=== PATIENT | female | born 1965 | race Caucasian/White ===

== ENCOUNTER 2016-11-16 21:00 | Outpatient (CLI) | payer BC, MEDICAID ==
[~2016-11-16 21:00] MED LIST: BENZ-13 PO; BUSP15TA60 PO; CETI10TA17 PO; FLUO20CA42 PO; FLUT16SP22 NSEACH; GLUC1CAP37 PO; GUAI600T86 PO; HYDR12.56 PO
== END 2016-11-17 06:05 | disposition home or self-care (01) ==
LOC: SLEEP 21:00
PROVIDERS: ATTEND Pediatrics
DX: G47.10 Hypersomnia, unspecified (principal); R06.83 Snoring; G47.33 Obstructive sleep apnea (adult) (pediatric)
CPT/HCPCS: 95810

== ENCOUNTER 2017-01-08 09:00 | Outpatient (CLI) | payer BC, MEDICAID ==
[~2017-01-08] VITALS: Ht 167.6 cm; Wt 108.9 kg
[2017-01-08] MEDS ORDERED: BUSP7.5T5 PO (09:33)
[2017-01-08] MEDS ORDERED: FLUO40CA PO (09:33)
== END 2017-01-08 09:44 ==
LOC: PREOP 09:00
PROVIDERS: ATTEND Surgery
DX: Z01.818 Encounter for other preprocedural examination (principal); Z12.11 Encounter for screening for malignant neoplasm of colon

== ENCOUNTER 2017-01-13 07:56 | Day surgery (SDC) | payer BC, MEDICAID ==
[~2017-01-13] VITALS: Ht 167.6 cm; Wt 108.9 kg
[~2017-01-13 07:56] MED LIST changes: +BUSP7.5T5 PO; +FLUO40CA PO
[2017-01-13] MEDS ORDERED: LACTATED RINGERS 1,000 ML IV ONE (08:41)
[2017-01-13] MEDS ORDERED: LACTATED RINGERS 1,000 ML IV SCH (08:45)
[2017-01-13] MEDS ORDERED: BENZOCAINE 20% SPRAY (HURRICANE) 60 ML CAN MT PRN (09:00)
[2017-01-13 09:14] VITALS: BP 144/93
[2017-01-13] MEDS ORDERED: fentaNYL INJECTION 100 MCG/2 ML AMP IVP PRN ×2 (09:45)
[2017-01-13] MEDS ORDERED: MIDAZOLAM 2 MG/2 ML (VERSED) VIAL IVP PRN ×2 (09:45)
[2017-01-13] MEDS ORDERED: proPOfol 200 MG/20 ML (DIPRIVAN) VIAL IV ONE (10:53)
[2017-01-13] MEDS ORDERED: LIDOCAINE PF 2% 5 ML (XYLOCAINE) VIAL ONE (10:53)
--- NOTE | 2017-01-13 10:56 | Progress Note-Pre Operative ---
Pre-Operative Progress Note H&P Reviewed The H&P was reviewed, patient examined and no changes noted. Time Seen by Provider: 10:51 Date H&P Reviewed: Jan 13, 2017 Time H&P Reviewed: 10:54 Pre-Operative Diagnosis: Screening Colonoscopy ALECIA KELLY DO Jan 13, 2017 10:56
[2017-01-13 11:35] VITALS: BP 148/78
--- NOTE | 2017-01-13 11:53 | Progress Note-Post Operative ---
Post-Operative Progess Note Surgeon (s)/Power Driven Brush Maker (s) Surgeon ALECIA KELLY DO Power Driven Brush Maker: none Pre-Operative Diagnosis Screening Colonoscopy Post-Operative Diagnosis Polyps Diverticula Int Hemorrhoids Procedure & Operative Findings Date of Procedure 01/13/17 Procedure Performed/Findings Colon with hot bx Anesthesia Type IV sedation by CUSTOMER ACCOUNTS ADVISOR Estimated Blood Loss Estimated blood loss (mL): scant Specimens/Packing Specimens Removed Desc colon polyp Asc colon polyp Transverse colon polyp ALECIA KELLY DO Jan 13, 2017 11:53
--- NOTE | 2017-01-13 11:55 | Endoscopy Discharge Instruct ---
Endo Procedure/Findings Findings 1.: Polyp 2.: Diverticulosis 3.: Internal Hemorrhoids Discharge Instructions - Activity: You might feel a little sleepy until tomorrow. This is due to the medicine you received to relax you. Until tomorrow, you should: NOT drive a car, operate machinery or power tools. NOT drink any alcoholic beverages. NOT make any important decisions or sign importortant papers. Do not return to work until tomorrow, unless otherwise instructed. Resume previous activities tomorrow. Diet: Start by taking liquids. If you tolerate liquids, advance to solid food. Make appointment for one week. Notify Physician - If you experience excessive bleeding, unusual abdominal pain, fever, or chest pain, contact your doctor immediately. [phone] Follow-Up: - I have received and understand the above instructions and will call my doctor if I have any further questions. Patient Signature Date Nurse Signature Other (Relationship) ALECIA KELLY DO Jan 13, 2017 11:55
[2017-01-13 12:05] VITALS: BP 138/99
[2017-01-13 12:38] VITALS: BP 138/99
--- NOTE | 2017-01-14 01:19 | OPERATIVE REPORT ---
DATE OF SERVICE: 01/13/2017 PREOPERATIVE DIAGNOSIS: Screening colonoscopy. POSTOPERATIVE DIAGNOSES: 1. Colon polyp. 2. Diverticula. 3. Internal hemorrhoids. PROCEDURE: Colonoscopy with hot biopsy. SURGEON: Javier Mccarty DO. NATIONAL ACCOUNT DIRECTOR: None. ANESTHESIA: IV sedation by HIM MANAGER. SPECIMEN: One polyp from the ascending colon and one polyp from the transverse colon and one polyp from the descending colon. BLOOD LOSS: Scant. FLUIDS: Per Anesthesia. POSTOPERATIVE CONDITION: Stable. INDICATION FOR PROCEDURE: The patient is a 51-year-old female who has never had a colonoscopy and needs one for screening. FINDINGS: The patient had a polyp in the ascending colon, one in the transverse and one in the descending colon. She also had some diverticula in the sigmoid and descending colon and she had some small internal hemorrhoids. PROCEDURE NOTE: After informed consent was obtained, the patient was brought to the endoscopy suite and placed in the bed in the left lateral decubitus position. She was administered IV sedation by the HIM MANAGER, who then monitored her vitals and the colonoscope was inserted. On the way in, at about 40 cm, noted a polyp in the descending colon. Elected to do a hot biopsy here and got this out I believe in 3 pieces. I then continued to see some diverticula as well through here, took a picture, continued up the transverse colon to the hepatic flexure, then down to the cecum, I was able to get all the way to the cecum, took a picture of the appendiceal orifice, noted the ileocecal valve and I slowly withdrew the scope, insufflating to look circumferentially at the dhaliwal, looking at the cecum and then up the ascending colon where we saw another flat polyp, did a hot biopsy of this and then up the ascending colon to the hepatic flexure, down the transverse colon found another flat polyp. Again, did another hot biopsy to remove this and then continued down to the splenic flexure and then down the descending colon into the sigmoid and then finally into the rectum, retroflexing the rectal vault, saw some internal hemorrhoids, took a picture of this and then removed the scope. The patient tolerated the procedure well and was recovered in the endoscopy suite. Job ID: [id number] DocumentID: [id number] Dictated Date: 01/13/2017 13:56:14 Bakery Supervisor Date: 01/14/2017 01:18:33 Dictated By: JAVIER MCCARTY DO
== END 2017-01-13 12:20 | disposition home or self-care (01) ==
LOC: ENDO 07:56
PROVIDERS: ATTEND Surgery
DX: Z12.11 Encounter for screening for malignant neoplasm of colon (principal); K57.30 Diverticulosis of large intestine without perforation or abscess without bleeding; D12.2 Benign neoplasm of ascending colon; D12.3 Benign neoplasm of transverse colon; K63.5 Polyp of colon; K64.8 Other hemorrhoids; I10 Essential (primary) hypertension; F41.9 Anxiety disorder, unspecified; Z85.828 Personal history of other malignant neoplasm of skin; Z88.2 Allergy status to sulfonamides; G47.33 Obstructive sleep apnea (adult) (pediatric); E66.9 Obesity, unspecified; Z68.39 Body mass index [BMI] 39.0-39.9, adult

== ENCOUNTER 2017-05-22 12:50 | Outpatient (CLI) | payer BC, MEDICAID ==
[~2017-05-22] VITALS: Ht 167.6 cm; Wt 108.9 kg
== END 2017-05-22 13:09 ==
LOC: PREOP 12:50
PROVIDERS: ATTEND Surgery
DX: Z01.818 Encounter for other preprocedural examination (principal); Z13.9 Encounter for screening, unspecified

== ENCOUNTER 2017-05-28 12:03 | Day surgery (SDC) | payer BC, MEDICAID ==
[2017-05-28] MEDS ORDERED: LACTATED RINGERS 1,000 ML IV ONE (12:15)
[2017-05-28] MEDS ORDERED: LACTATED RINGERS 1,000 ML IV STA (12:41)
[2017-05-28] MEDS ORDERED: HURRICAINE EXT TUBE (BENZOCAINE) XX PRN (12:45)
[2017-05-28 12:46] VITALS: BP 132/94
--- NOTE | 2017-05-28 12:57 | Progress Note-Pre Operative ---
Pre-Operative Progress Note H&P Reviewed The H&P was reviewed, patient examined and no changes noted. Time Seen by Provider: 12:53 Date H&P Reviewed: May 28, 2017 Time H&P Reviewed: 12:55 Pre-Operative Diagnosis: screening EGD ALECIA KELLY DO May 28, 2017 12:57
[2017-05-28] MEDS ORDERED: proPOfol 200 MG/20 ML (DIPRIVAN) VIAL IV ONE ×3 (13:23→13:46)
[2017-05-28] MEDS ORDERED: MIDAZOLAM 2 MG/2 ML (VERSED) VIAL ONE (13:23)
[2017-05-28] MEDS ORDERED: HURRICAINE EXT TUBE (BENZOCAINE) ONE (13:24)
--- NOTE | 2017-05-28 13:59 | Progress Note-Post Operative ---
Post-Operative Progess Note Surgeon (s)/Swiss Machinist (s) Surgeon ALECIA KELLY DO Swiss Machinist: none Pre-Operative Diagnosis screening EGD Post-Operative Diagnosis Gastritis Gastric Polyps ?? Esophageal plaque Procedure & Operative Findings Date of Procedure 05/28/17 Procedure Performed/Findings EGD with biopsy EGD with snare polypectomy EGD with brushing of esophagus Anesthesia Type IV sedation by PHARMACY LABORATORY TECHNICIAN Estimated Blood Loss Estimated blood loss (mL): scant Specimens/Packing Specimens Removed Antral Bx Gastric polyp (1 from cardia and 1 from greater curvature) Esophageal brushing and plaque ALECIA KELLY DO May 28, 2017 13:59
--- NOTE | 2017-05-28 14:01 | Endoscopy Discharge Instruct ---
Endo Procedure/Findings Findings 1.: Gastritis 2.: Polyp (Gastric) 3.: Other Findings (??Esophageal plaque) Discharge Instructions - Activity: You might feel a little sleepy until tomorrow. This is due to the medicine you received to relax you. Until tomorrow, you should: NOT drive a car, operate machinery or power tools. NOT drink any alcoholic beverages. NOT make any important decisions or sign importortant papers. Do not return to work until tomorrow, unless otherwise instructed. Resume previous activities tomorrow. Diet: Start by taking liquids. If you tolerate liquids, advance to solid food. Make appointment for one week. Notify Physician - If you experience excessive bleeding, unusual abdominal pain, fever, or chest pain, contact your doctor immediately. Follow-Up: - I have received and understand the above instructions and will call my doctor if I have any further questions. Patient Signature Date Nurse Signature Other (Relationship) ALECIA KELLY DO May 28, 2017 14:01
[2017-05-28 14:15] VITALS: BP 117/85
[2017-05-28 14:45] VITALS: BP 138/83
[2017-05-28 14:50] VITALS: BP 138/83
--- NOTE | 2017-05-30 19:02 | OPERATIVE REPORT ---
DATE OF SERVICE: 05/28/2017 PREOPERATIVE DIAGNOSIS: Screening EGD for intended bariatric surgery. POSTOPERATIVE DIAGNOSES: 1. Gastritis. 2. Gastric polyp. 3. Questionable esophageal plaque. PROCEDURE: 1. EGD with biopsy. 2. EGD with polypectomy done by snare. 3. EGD with brushing. SURGEON: Javier Mccarty DO ROUNDSMAN: None. ANESTHESIA: IV sedation by the TEACHER CCLC. SPECIMEN: One biopsy from the antrum, 1 polyp from the cardia and 1 polyp from the greater curvature as well as brushing from esophageal plaque. BLOOD LOSS: Scant. FLUIDS: Per anesthesia. POSTOPERATIVE CONDITION: Stable. INDICATION FOR PROCEDURE: The patient is a 52-year-old female, who is going for bariatric surgery and she needed an EGD prior to having the surgery completed. FINDINGS: She had some gastritis in the antrum, duodenum looked okay. She had some areas in the esophagus that almost looked like a scraping of pills or something going down pass this and she had some polyps in the stomach. Pictures were taken. The GE junction looked okay. No hiatal hernia seen. PROCEDURE NOTE: After informed consent was obtained, the patient was brought to the endoscopy suite, placed in the bed in left lateral decubitus position. She was administered IV sedation by the TEACHER CCLC, who then monitored her vital signs, heart rate, blood pressure and pulse ox. Inserted the scope, pushed down the mouth into the esophagus and the esophagus saw what looked like possibly plaque or some type of whitish material within streaks down. It did not appear to be a Kaur's esophagus. Pushed pass this into the stomach and down into the duodenum took picture of the duodenum looked normal. Took a picture of the antrum looked to be a little bit of redness did a biopsy here and then in a pulling back in the stomach saw a polyp in the cardia and then one in the greater curvature. These were removed with snare polypectomy and then up retroflexed to look did not see any hiatal hernia. GE junction looked good. Took a picture of this and then pulled up and into the esophagus where we saw this what looked like possibly plaquing or maybe Bonny infection and did a brushing and then took a small portion of the plaque able to pull it off the wall of the esophagus and sent all this to pathology, then removed the scope. The patient tolerated the procedure and she was recovered in the endoscopy. Job ID: [id number] DocumentID: [id number] Dictated Date: 05/30/2017 11:35:56 Technology Services Manager Date: 05/30/2017 19:02:26 Dictated By: DO VENESSA SAAB
== END 2017-05-28 14:50 | disposition home or self-care (01) ==
LOC: ENDO 12:03
PROVIDERS: ATTEND Surgery
DX: K31.7 Polyp of stomach and duodenum (principal); K29.60 Other gastritis without bleeding; I10 Essential (primary) hypertension; E66.9 Obesity, unspecified; Z88.2 Allergy status to sulfonamides; Z79.899 Other long term (current) drug therapy
CPT/HCPCS: 87101; 88305

== ENCOUNTER → 2018-01-16 | Outpatient (CLI) | payer BC ==
[~2018-01-16] MED LIST changes: -BENZ-13 PO; +BENZ100C18 PO
--- NOTE | 2018-01-16 19:47 | Diagnostic Imaging Report ---
INDICATION: Routine screening. Comparison is made with prior mammograms from 02/02/2016 and 01/24/2015. 2-D and 3-D bilateral screening mammography was performed with computer-aided detection (CAD) system. FINDINGS: Scattered fibroglandular densities are identified bilaterally. No mass or malignant-appearing microcalcifications are seen. The axillae are unremarkable. IMPRESSION: No mammographic features suspicious for malignancy are identified. ACR BI-RADS Category 1: Negative. Result letter will be mailed to the patient. Note: At least 10% of breast cancer is not imaged by mammography. Dictated on workstation # [id number]
== END ==
LOC: RAD 10:22
PROVIDERS: ATTEND Nurse Practitioner Family
DX: Z12.31 Encounter for screening mammogram for malignant neoplasm of breast (principal)
CPT/HCPCS: 77067

== ENCOUNTER → 2020-06-02 | Outpatient (CLI) | payer BC ==
--- NOTE | 2020-06-02 15:47 | Diagnostic Imaging Report ---
INDICATION: Routine screening. COMPARISON is made with prior mammograms dated 01/16/2018 and 02/02/2016. 2-D and 3-D bilateral screening mammography was performed with CAD. Scattered fibroglandular densities are identified bilaterally. The parenchymal pattern is stable. A small nodule inferior right breast appears stable. No spiculated mass or malignant appearing microcalcifications are seen. Axillae are unremarkable. IMPRESSION: BI-RADS Category 2. No mammographic features suspicious for malignancy are identified. ACR BI-RADS Category 2: Benign findings. Result letter will be mailed to the patient. Note: At least 10% of breast cancer is not imaged by mammography. Dictated by: Dictated on workstation # [id number]
== END ==
LOC: RAD 10:56
PROVIDERS: ATTEND Pediatrics
DX: Z12.31 Encounter for screening mammogram for malignant neoplasm of breast (principal)
CPT/HCPCS: 77063; 77067

== ENCOUNTER → 2022-12-10 | Outpatient (CLI) | payer OTHER ==
--- NOTE | 2022-12-10 18:43 | Diagnostic Imaging Report ---
PROCEDURE: MRI lumbar spine. TECHNIQUE: Multiplanar, multisequence MRI of the lumbar spine was performed without contrast. INDICATION: Ankylosing spondylitis, chronic back pain. COMPARISON: I have no priors. FINDINGS: There is grade 1 degenerative retrolisthesis of L3 on L4 and L2 on L3. These are off about 4 mm. No defect to the pedicles or pars and no fracture pattern found. There are mild mixed fatty and edematous Modic type I-type II degenerative changes across the L2-L3 and L3-L4 opposing endplates. No acute appearing marrow signal pathology. The lower thoracic cord and conus appeared normal. There was no paravertebral mass, hemorrhage or acute fluid collection. L1-L2: Disc desiccation, bulge and endplate osteophytes are present. There is a tiny midline focal disc protrusion. There was however only very mild canal stenosis and no significant foraminal narrowing. L2-L3: Facet arthrosis and mild thickening of the ligamenta flava, disc bulge and endplate osteophytes. The findings result in mild to moderate degree of spinal canal stenosis with mild right and [id number] left foraminal narrowing. L3-L4: Endplate osteophytes, disc bulge and facet arthrosis with thickened ligamenta flava result in moderate to severe spinal canal stenosis with moderate right lateral recess stenosis. There is moderate to severe right and mild left neural foraminal stenoses. L4-L5: Thickened ligamenta flava facet arthrosis, disc bulge and endplate osteophytes are present with only mild to moderate canal stenosis. There is mild biforaminal stenosis. L5-S1: There is thickened ligamenta flava and facet arthrosis largely responsible for mild canal stenosis. There is no substantial foraminal narrowing. IMPRESSION: 1. Ramirez-lumbar degenerative changes with multilevel mild to moderate stenoses as above with a grade 1 degenerative retrolisthesis and multilevel degenerative Modic type I-type II endplate changes. 2. No acute-appearing bony pathology and no intrathecal or acute epidural abnormality. Dictated by: Dictated on workstation # [id number]
== END ==
LOC: RAD 12:37
PROVIDERS: ATTEND Pediatrics
DX: M51.26 Other intervertebral disc displacement, lumbar region (principal); M47.816 Spondylosis without myelopathy or radiculopathy, lumbar region; M51.36 Other intervertebral disc degeneration, lumbar region; M24.28 Disorder of ligament, vertebrae; M48.061 Spinal stenosis, lumbar region without neurogenic claudication; M43.16 Spondylolisthesis, lumbar region; M45.0 Ankylosing spondylitis of multiple sites in spine
CPT/HCPCS: 72148